=== PATIENT | male | born 1980 | race Caucasian/White ===

== ENCOUNTER 2017-03-28 10:39 | Inpatient (IN) | payer SELFPAY ==
[2017-03-28] MEDS ORDERED: Acetaminophen 325 MG Tab PO PRN (10:47)
[2017-03-28] MEDS ORDERED: Ondansetron 4 MG/2 ML SDV IV PRN (10:47)
[2017-03-28] MEDS ORDERED: Magnesium Hydroxide 400 MG/5 ML Susp 30 ML Cup PO PRN (10:47)
[2017-03-28] MEDS ORDERED: Temazepam 15 MG Cap PO PRN (10:47)
[2017-03-28] MEDS: Lactated Ringers 1,000 ML IV SCH ×2 (11:22→19:20)
[2017-03-28] MEDS: Albuterol/Ipratropium 3.0-0.5 MG/3 ML Neb Soln NEB SCH ×3 (11:23→19:20)
[2017-03-28] MEDS: methylPREDNISolone Sodium Succinate 125 MG/2 ML SDV IVPUSH SCH ×2 (11:23→22:59)
[2017-03-28] MEDS: Levofloxacin/Dextrose 5%-Water 500 MG in Premix Bag 1 BAG IV SCH (11:24)
[2017-03-28 11:39] LABS: CHLORIDE,CL 102 mEq/L (98-106); SODIUM,NA 138 mEq/L (136-145)
[2017-03-28] MEDS: Enoxaparin 30 MG/0.3 ML Syringe SUBCUT SCH (13:59)
[2017-03-29] MEDS: Albuterol/Ipratropium 3.0-0.5 MG/3 ML Neb Soln NEB SCH ×4 (08:24→19:37)
[2017-03-29] MEDS: Lactated Ringers 1,000 ML IV SCH ×3 (08:41→22:58)
--- NOTE | 2017-03-29 09:14 | PN ---
DATE: 03/29/2017 S: This gentleman came in. We attempted to treat as an outpatient for bronchiolitis, pneumonitis. O: NECK: Supple. CHEST: Crepitus, wheezing throughout. CARDIAC: Sounds are good. ASSESSMENT: BRONCHIOLITIS, EARLY PNEUMONITIS. P: Continue present therapy. MAN/ZIYAD /[id number]
[2017-03-29] MEDS: Levofloxacin/Dextrose 5%-Water 500 MG in Premix Bag 1 BAG IV SCH (10:48)
[2017-03-29] MEDS: methylPREDNISolone Sodium Succinate 125 MG/2 ML SDV IVPUSH SCH ×2 (10:50→22:59)
[2017-03-29] MEDS: Enoxaparin 30 MG/0.3 ML Syringe SUBCUT SCH (12:01)
[2017-03-30] MEDS: Levofloxacin/Dextrose 5%-Water 500 MG in Premix Bag 1 BAG IV SCH (07:50)
[2017-03-30] MEDS: methylPREDNISolone Sodium Succinate 125 MG/2 ML SDV IVPUSH SCH ×2 (07:50→20:21)
[2017-03-30] MEDS: Albuterol/Ipratropium 3.0-0.5 MG/3 ML Neb Soln NEB SCH ×4 (07:51→20:21)
--- NOTE | 2017-03-30 08:48 | PCM.PN ---
- General Info Date of Service: 03/30/17 Admission Dx/Problem (Free Text): Pneumonitis Bronchiolitis Subjective Update: Patient reports he is feeling much better. Reports cough has become more productive. No longer hurts to breathe. Still feels slightly short of breath. He has been afebrile. He reports that the nebulizer treatments really are helping. His VS are stable on room air. Functional Status: Reports: Pain Controlled, Tolerating Diet, Ambulating, Urinating. Denies: New Symptoms - Review of Systems General: Denies: Fever, Weakness, Fatigue Pulmonary: Reports: Shortness of Breath, Cough, Sputum. Denies: Pleuritic Chest Pain Cardiovascular: Reports: Dyspnea on Exertion. Denies: Chest Pain, Palpitations , Edema, Lightheadedness Gastrointestinal: Reports: No Symptoms Genitourinary: Reports: No Symptoms Neurological: Reports: No Symptoms - Patient Data Vitals - Most Recent: Last Vital Signs Temp 97.4 F 03/29/17 23:56 Pulse 78 03/30/17 07:38 Resp 16 03/30/17 07:38 BP 127/74 03/30/17 07:38 Pulse Ox 94 L 03/30/17 07:38 Weight - Most Recent: 191 lb 12.8 oz I&O - Last 24 Hours: Intake & Output 03/29/17 03/30/17 03/30/17 22:59 06:59 14:59 Intake Total 1330 Balance 1330 Lab Results Last 24 Hours: Laboratory Results - last 24 hr 03/30/17 Range/Units 07:54 WBC 17.5 H (5.0-10.0) 10^3/uL RBC 4.85 (4.50-6.00) 10^6/uL Hgb 14.8 (14.0-18.0) g/dL Hct 43.3 (40.0-54.0) % MCV 89.3 (82.0-94.0) fL MCH 30.5 (27.0-32.0) pg MCHC 34.2 (33.0-38.0) g/dL RDW Coeff of Matthew 13.6 (11.0-15.0) % Plt Count 263 (150-400) 10^3/uL Neut % (Auto) 83.9 (35-85) % Lymph % (Auto) 13.1 (10-55) % [place] % (Auto) 2.9 (0-16) % Eos % (Auto) 0 (0-5) % Baso % (Auto) 0.1 (0-3) % Neut # (Auto) 14.66 H (1.80-7.00) 10^3/uL Lymph # (Auto) 2.28 (1.00-4.80) 10^3/uL [place] # (Auto) 0.51 (0.00-0.80) 10^3/uL Eos # (Auto) 0.00 (0.00-0.45) 10^3/uL Baso # (Auto) 0.01 10^3/uL Cullen Results Last 24 Hours: Microbiology 03/29/17 08:12 Gram Stain - Final Sputum - Expectorated Sputum Culture - Preliminary Med Orders - Current: Current Medications Acetaminophen (Tylenol) 650 mg PO Q4H PRN PRN Reason: Pain (Mild 1-3)/fever Last Admin: 03/28/17 11:31 Dose: 650 mg Albuterol/Ipratropium (Duoneb 3.0-0.5 Mg/3 Ml) 3 ml NEB QIDRT [facility] Last Admin: 03/30/17 07:51 Dose: 3 ml Enoxaparin Sodium (Lovenox) 30 mg SUBCUT DAILY@1200 [facility] Last Admin: 03/29/17 12:01 Dose: 30 mg Levofloxacin/Dextrose 500 mg/ (Premix) 100 mls @ 100 mls/hr IV Q24H [facility] Last Admin: 03/30/17 07:50 Dose: 100 mls/hr Magnesium Hydroxide (Milk Of Magnesia) 30 ml PO Q12H PRN PRN Reason: Constipation Methylprednisolone Sodium Succinate (Solu-Medrol) 62.5 mg IVPUSH Q12H [facility] Last Admin: 03/30/17 07:50 Dose: 62.5 mg Ondansetron HCl (Zofran) 4 mg IV Q6H PRN PRN Reason: Nausea/Vomiting Temazepam (Restoril) 15 mg PO BEDTIME PRN PRN Reason: Sleep Discontinued Medications Lactated Ringer's (Ringers, Lactated) 1,000 mls @ 100 mls/hr IV ASDIRECTED [facility] Last Admin: 03/29/17 22:58 Dose: 100 mls/hr Levofloxacin/Dextrose 500 mg/ (Premix) 100 mls @ 100 mls/hr IV Q24H [facility] Last Admin: 03/29/17 10:48 Dose: 100 mls/hr Methylprednisolone Sodium Succinate (Solu-Medrol) 62.5 mg IVPUSH Q12H [facility] Last Admin: 03/29/17 22:59 Dose: 62.5 mg - Exam Quality Assessment: DVT Prophylaxis. No: Supplemental Oxygen General: Alert, Oriented Neck: Supple Lungs: Normal Respiratory Effort, Decreased Breath Sounds. No: Crackles, Wheezing Cardiovascular: Regular Rate, Regular Rhythm Neurological: No New Focal Deficit Psy/Mental Status: Alert, Normal Affect, Normal Mood - Problem List & Annotations (1) Pneumonitis SNOMED Code(s): 452811030 Code(s): J18.9 - PNEUMONIA, UNSPECIFIED ORGANISM Status: Acute Current Visit: Yes (2) Bronchiolitis SNOMED Code(s): 4942799 Code(s): J21.9 - ACUTE BRONCHIOLITIS, UNSPECIFIED Status: Acute Current Visit: Yes - Problem List Review Problem List Initiated/Reviewed/Updated: Yes - My Orders Last 24 Hours: My Active Orders 03/30/17 07:54 C-REACTIVE PROTEIN [CHEM] Routine - Plan Plan:: Continue current therapy- IV levaquin, duonebs, and steroids WBC increased today- likely steroid induced. Will recheck in am. CRP decreased from 5.4 to 1.5. Probable discharge tomorrow if continues to improve
[2017-03-30] MEDS: Enoxaparin 30 MG/0.3 ML Syringe SUBCUT SCH (11:38)
[2017-03-31] MEDS: Albuterol/Ipratropium 3.0-0.5 MG/3 ML Neb Soln NEB SCH (07:41)
[2017-03-31] MEDS: Levofloxacin/Dextrose 5%-Water 500 MG in Premix Bag 1 BAG IV SCH (07:41)
[2017-03-31] MEDS: methylPREDNISolone Sodium Succinate 125 MG/2 ML SDV IVPUSH SCH (07:42)
[2017-03-31 08:04] VITALS: BP 128/71
--- NOTE | 2017-03-31 09:25 | PN ---
DATE: 03/31/2017 S: This gentleman came in. We attempted to treat as an outpatient for bronchiolitis and pneumonitis. He then came in with severe shortness of breath and now started on RT treatments, IV steroids, intravenous antibiotics. At the time of discharge, lungs were relatively clear. He felt great. LABORATORY DATA: Labs here in the hospital, white count was still elevated at 5 from the steroids. C-reactive protein went from 5.4 to 0.9. Urine looked good. DISPOSITION: The patient is now discharged home. We will see him back in the clinic in [place] on Monday for a recheck. DISCHARGE MEDICATIONS: Home medications. DISCHARGE DIAGNOSES: 1. Bronchiolitis. 2. Pneumonitis. Send him home on Zithromax and prednisone 20 daily. DANII /[id number]
== END 2017-03-31 09:30 | disposition home or self-care (01) | DRG 195 ==
LOC: CC.MS 10:39 → UNDOADMIN 10:39 → MERGE 10:47 → CC.MS 10:47
PROVIDERS: ADMIT General Practice; ATTEND General Practice
DX: J18.0 Bronchopneumonia, unspecified organism (principal); Z82.49 Family history of ischemic heart disease and other diseases of the circulatory system
CPT/HCPCS: 36415; 71046; 80053; 81001; 83735; 84443; 85025; 86140; 87070; 87205; 87804; 94640; A9270-GY; J1650; J1956; J2930; J7120

== ENCOUNTER 2018-01-02 13:29 | Observation (INO) | payer OTHER ==
[2018-01-02 14:00] LABS: CHLORIDE,CL 101 mEq/L (98-106); SODIUM,NA 137 mEq/L (136-145)
[2018-01-02] MEDS ORDERED: Temazepam 15 MG Cap PO PRN (17:07)
[2018-01-02] MEDS ORDERED: fentaNYL 100 MCG/2 ML SDV IVPUSH PRN (17:09)
[2018-01-02] MEDS ORDERED: Acetaminophen 500 MG Tab PO PRN (17:17)
[2018-01-02] MEDS: Pantoprazole 40 MG Vial IVPUSH SCH (18:02)
[2018-01-02] MEDS: Lactated Ringers 1,000 ML IV SCH (18:12)
[2018-01-02] MEDS: Sucralfate 1 GM Tab PO SCH (19:30)
[2018-01-03] MEDS: Lactated Ringers 1,000 ML IV SCH ×2 (02:46→15:08)
[2018-01-03] MEDS: Pantoprazole 40 MG Vial IVPUSH SCH (05:57)
[2018-01-03] MEDS: Sucralfate 1 GM Tab PO SCH ×2 (06:08→12:10)
[2018-01-03] MEDS ORDERED: Midazolam 1 MG/ML 2 ML SDV ONE ×2 (09:43→10:37)
[2018-01-03] MEDS ORDERED: Meperidine PF 25 MG/ML Syringe ONE ×2 (09:44→10:35)
[2018-01-03] MEDS ORDERED: Benzocaine 20% Oral Spray 59.2 ML Canister MUCMEM ONE ×2 (10:10→10:35)
[2018-01-03] MEDS ORDERED: Midazolam 1 MG/ML 2 ML SDV IV ONE ×2 (10:35→10:40)
[2018-01-03] MEDS ORDERED: Meperidine PF 50 MG/ML Syringe IV ONE (10:35)
[2018-01-03] MEDS ORDERED: Pantoprazole 40 MG Vial IVPUSH ONE (17:00)
[2018-01-03 17:28] VITALS: BP 110/64
--- NOTE | 2018-01-03 21:20 | PCM.DCSUM1 ---
Discharge Summary - Hospital Course Free Text/Narrative:: Patient presented to clinic to see Tahira for epigastric pain. Increasing in nature. Had tried Prilosec and Zantac without relief. Rated pain at a 6/10. Tender to midepigastric area. Labs done did show elevated WBC of 14.4 with CRP of 4.4. Patient admitted for IV fluids, EGD. Started on Carafate. Modified Norco Scale: No Symptoms at All Modified Norco Scale Score: 0 - Discharge Data Discharge Date: 01/03/18 Discharge Disposition: Home, Self-Care 01 Condition: Good - Patient Summary/Data Operative Procedure(s) Performed: EGD, see procedure note Complications: none Hospital Course: Hospital course uneventful. Patient this am did continue to have mild midepigastric pain. Labs 11.4, CRP up to [address] Madison did perform an EGD today with noted gastritis, duodenitis. Patient given IV Protonix 40 mg today. Advised of findings. Need to continue Protonix 40 mg daily. Decrease stimulants. Admits to very little alcohol use. Does drink energy drinks daily. Smokes but is feeling he will quit as he a child due in February. Tolerated regular meal after scope today. - Patient Instructions Diet: Usual Diet as Tolerated Activity: As Tolerated - Discharge Plan *PRESCRIPTION DRUG MONITORING PROGRAM REVIEWED*: No *COPY OF PRESCRIPTION DRUG MONITORING REPORT IN PATIENT MICHELE: No Prescriptions/Med Rec: Pantoprazole Sodium [Protonix] 40 mg PO DAILY #30 tablet. Home Medications: Home Meds Pantoprazole Sodium [Protonix] 40 mg PO DAILY #30 tablet. 01/03/18 [Rx] Referrals: Tahira Garcia GL[employer] OPERATOR [Primary Care Provider] - (Follow up with Tahira in 2 weeks) - Discharge Summary/Plan Comment DC Time >30 min.: No Discharge Summary/Plan Comment: Discharge home Protonix 40 mg daily Follow up with Tahira in 2 weeks. - General Info Date of Service: 01/03/18 Admission Dx/Problem (Free Text: Gastritis Functional Status: Reports: Pain Controlled, Tolerating Diet, Ambulating - Review of Systems General: Denies: Fever, Weakness, Fatigue HEENT: Reports: No Symptoms Pulmonary: Denies: Shortness of Breath, Cough Cardiovascular: Denies: Chest Pain, Edema, Lightheadedness Gastrointestinal: Reports: Abdominal Pain. Denies: Nausea, Vomiting Genitourinary: Reports: No Symptoms Musculoskeletal: Reports: No Symptoms Skin: Reports: No Symptoms Neurological: Reports: No Symptoms - Patient Data Vitals - Most Recent: Last Vital Signs Temp 96.1 F 01/03/18 16:00 Pulse 74 01/03/18 16:00 Resp 20 01/03/18 16:00 BP 110/64 01/03/18 16:00 Pulse Ox 93 L 01/03/18 11:30 Weight - Most Recent: 177 lb 8 oz I&O - Last 24 hours: Intake & Output 01/03/18 01/03/18 01/03/18 06:59 14:59 22:59 Intake Total 1000 1000 Balance 1000 1000 Lab Results - Last 24 hrs: Laboratory Results - last 24 hr 01/03/18 01/03/18 Range/Units 07:07 07:07 WBC 11.9 H (5.0-10.0) 10^3/uL RBC 5.30 (4.50-6.00) 10^6/uL Hgb 15.8 (14.0-18.0) g/dL Hct 45.8 (40.0-54.0) % MCV 86.4 (82.0-94.0) fL MCH 29.8 (27.0-32.0) pg MCHC 34.5 (33.0-38.0) g/dL RDW Coeff of Matthew 13.6 (11.0-15.0) % Plt Count 227 (150-400) 10^3/uL Neut % (Auto) 71.8 (35-85) % Lymph % (Auto) 18.5 (10-55) % [place] % (Auto) 6.9 (0-16) % Eos % (Auto) 2.5 (0-5) % Baso % (Auto) 0.3 (0-3) % Neut # (Auto) 8.51 H (1.80-7.00) 10^3/uL Lymph # (Auto) 2.20 (1.00-4.80) 10^3/uL [place] # (Auto) 0.82 H (0.00-0.80) 10^3/uL Eos # (Auto) 0.30 (0.00-0.45) 10^3/uL Baso # (Auto) 0.03 10^3/uL C-Reactive Protein 10.0 H (0.2-0.8) mg/dL Med Orders - Current: Current Medications Discontinued Medications Acetaminophen (Tylenol Extra Strength) 1,000 mg PO Q6H PRN PRN Reason: Pain Benzocaine (Hurricaine 20% Bergoo) 5 ml MUCMEM .STK-MED ONE Stop: 01/03/18 10:11 Last Admin: 01/03/18 10:10 Dose: 5 ml Benzocaine (Hurricaine 20% Bergoo) 5 ml MUCMEM .STK-MED ONE Stop: 01/03/18 10:36 Last Admin: 01/03/18 10:35 Dose: 5 ml Fentanyl (Sublimaze) 25 mcg IVPUSH Q6H PRN PRN Reason: Pain Last Admin: 01/02/18 18:19 Dose: 25 mcg Lactated Ringer's (Ringers, Lactated) 1,000 mls @ 125 mls/hr IV ASDIRECTED [facility] Last Admin: 01/03/18 15:08 Dose: 125 mls/hr Meperidine HCl (Demerol) Confirm Administered Dose 25 mg .ROUTE .STK-MED ONE Stop: 01/03/18 09:45 Last Admin: 01/03/18 13:52 Dose: Not Given Meperidine HCl (Demerol) Confirm Administered Dose 25 mg .ROUTE .STK-MED ONE Stop: 01/03/18 10:36 Last Admin: 01/03/18 13:52 Dose: Not Given Meperidine HCl (Demerol) 50 mg IV .STK-MED ONE Stop: 01/03/18 10:36 Last Admin: 01/03/18 10:35 Dose: 50 mg Midazolam HCl (Versed 1 Mg/Ml) Confirm Administered Dose 4 mg .ROUTE .STK-MED ONE Stop: 01/03/18 09:44 Last Admin: 01/03/18 13:52 Dose: Not Given Midazolam HCl (Versed 1 Mg/Ml) Confirm Administered Dose 2 mg .ROUTE .STK-MED ONE Stop: 01/03/18 10:38 Last Admin: 01/03/18 13:52 Dose: Not Given Midazolam HCl (Versed 1 Mg/Ml) 4 mg IV .STK-MED ONE Stop: 01/03/18 10:36 Last Admin: 01/03/18 10:35 Dose: 4 mg Midazolam HCl (Versed 1 Mg/Ml) 2 mg IV .STK-MED ONE Stop: 01/03/18 10:41 Last Admin: 01/03/18 10:40 Dose: 2 mg Pantoprazole Sodium (Protonix Iv) 40 mg IVPUSH Q12H [facility] Last Admin: 01/03/18 05:57 Dose: 40 mg Pantoprazole Sodium (Protonix Iv) 40 mg IVPUSH ONETIME ONE Stop: 01/03/18 17:01 Last Admin: 01/03/18 17:08 Dose: 40 mg Sucralfate (Carafate) 1 gm PO QIDACANDBED [facility] Last Admin: 01/03/18 12:10 Dose: 1 gm Temazepam (Restoril) 15 mg PO BEDTIME PRN PRN Reason: Sleep - Exam General: Reports: Alert, Oriented HEENT: Reports: Mucous Membr. Moist/[place] Neck: Reports: Supple Lungs: Reports: Clear to Auscultation, Normal Respiratory Effort Cardiovascular: Reports: Regular Rate, Regular Rhythm GI/Abdominal Exam: Normal Bowel Sounds, Soft, Tender (midepigastric area) Extremities: Normal Inspection, No Pedal Edema Skin: Reports: Warm, Dry Neurological: Reports: No New Focal Deficit
--- NOTE | 2018-01-04 10:57 | OR ---
DATE OF OPERATION: 01/03/2018 PREOPERATIVE DIAGNOSIS: EPIGASTRIC PAIN. POSTOPERATIVE DIAGNOSIS: EPIGASTRIC PAIN. SURGEON: Neal Madison MD PROCEDURE: EGD. ANESTHESIA: Conscious sedation. COMPLICATIONS: None. SPECIMEN: None. FINDINGS: 1. Full-length EGD. 2. Mild duodenitis. 3. Mild antral gastritis. 4. Hiatal hernia, [id number] with spontaneous GERD, but no obvious esophagitis. RECOMMENDATIONS: The patient will be placed on proton pump therapy. Unfortunately, he started having a lot of gagging in the middle of procedure and we were not able to do any routine biopsies including SANDI testing on this gentleman. INDICATIONS: The patient was admitted for severe epigastric pain. He had a negative CT scan of his abdomen and labs were all fine including amylase. He was admitted for observation and I was asked to consult for an EGD. DESCRIPTION OF PROCEDURE: The patient was prepped and draped, placed in left lateral decubitus position. A lubricated Olympus gastroscope was inserted over a bit, advanced to cricopharyngeus area and intubated the esophagus. Esophageal line appeared benign in its entire course. The Z-line was crisp and sharp around 37.5 cm. There was a [id number] sized hiatal hernia present with some spontaneous reflux, but no distal esophagitis or stricturing ulceration or Martinez's changes. The scope was advanced into the stomach through the pylorus into the second portion of the duodenum. The second portion of duodenum looked fine. Duodenal bulb had some mild inflammation but no ulceration. Scope was brought back into the stomach and retroflexed. The upper fundus and cardia were unremarkable. Upon straightening, the patient started having a significant amount of gagging and retching, was pulling at the scope. It was very hard to safely keep the scope down. There was some antral gastritis, but no obvious ulcerations. We were attempting to get some routine biopsies of the duodenal bulb, antrum and SANDI testing, but the patient just became too agitated for this and we elected to stop. Air was suctioned, scope was safely removed without complication. The patient was taken back to his hospital bed. CASSIUS/ZIYAD /[id number]
== END 2018-01-03 17:25 | disposition home or self-care (01) ==
LOC: CC.MS 13:29 → CC.FCMC 13:29 → CC.MS 16:06
PROVIDERS: ADMIT Nurse Practitioner Family; ATTEND Family Medicine
DX: K29.70 Gastritis, unspecified, without bleeding (principal); K29.80 Duodenitis without bleeding; K44.9 Diaphragmatic hernia without obstruction or gangrene; K21.9 Gastro-esophageal reflux disease without esophagitis; F17.210 Nicotine dependence, cigarettes, uncomplicated; E78.5 Hyperlipidemia, unspecified
CPT/HCPCS: 36415; 43235; 80053; 80061; 82150; 82550; 83690; 84484; 85025; 86140; 96361; 96374; 96375; 96376; A9270; C9113; G0378; J2175; J2250; J3010; J7120

== ENCOUNTER 2019-01-27 03:53 | Emergency (ER) | payer BC ==
[2019-01-27] MEDS ORDERED: Cyclobenzaprine 10 MG Tab PO ONE (03:54)
[2019-01-27] MEDS ORDERED: Ketorolac 10 MG Tab PO ONE (03:54)
[2019-01-27] MEDS ORDERED: Ketorolac 60 MG/2 ML SDV IM ONE (03:55)
[2019-01-27 03:56] VITALS: BP 127/71; PULSE 100
--- NOTE | 2019-01-27 03:59 | EDM.PDOC ---
ED HPI GENERAL MEDICAL PROBLEM - General Chief Complaint: General Stated Complaint: fall Time Seen by Provider: 01/27/19 03:53 Source of Information: Reports: Patient, Family History Limitations: Reports: No Limitations - History of Present Illness INITIAL COMMENTS - FREE TEXT/NARRATIVE: Patient to the emergency department where he advised that he had just gotten home and slipped and fell in his driveway landing on his buttocks and has lower back pain. The patient does have a history of chronic back problems. The patient denies any unusual numbness or tingling into his lower extremities the patient denies any mid or upper back pain denies any neck pain he denies hitting his head, there is no loss of consciousness. The patient denies any abdominal pain no nausea no vomiting denies any other symptoms Onset: Today Duration: Hour(s): Location: Reports: Back (Lumbar spine area) Quality: Reports: Ache Severity: Moderate Improves with: Reports: None Worsens with: Reports: Movement Context: Reports: Trauma Associated Symptoms: Reports: No Other Symptoms. Denies: Chest Pain, Nausea/ Vomiting, Shortness of Breath Treatments SURGICAL NURSE: Reports: Other (see below) (None) Lower Back Pain Score (Numeric/FACES): 10 - Related Data Allergies Allergy/AdvReac Type Severity Reaction Status Date / Time venom-honey bee Allergy Severe Anaphylactic Verified 01/27/19 04:08 [bee venom (honey bee)] Shock Home Meds: Home Meds Pantoprazole Sodium [Protonix] 40 mg PO DAILY #30 tablet. 01/03/18 [Rx] Methocarbamol [Robaxin] 500 mg PO TID 10 Days #30 tab 01/27/19 [Rx] Pravastatin Sodium 10 mg PO DAILY 01/27/19 [History] SUMAtriptan Succinate [Imitrex] 100 mg PO DAILY PRN 01/27/19 [History] Ubidecarenone [Co Q-10] 200 mg PO DAILY 01/27/19 [History] Past Medical History - Past Health History Medical/Surgical History: Denies Medical/Surgical History - Past Surgical History Musculoskeletal Surgical History: Reports: Shoulder Surgery Social & Family History - Living Situation & Occupation Living situation: Reports: Occupation: Employed ED ROS GENERAL - Review of Systems Review Of Systems: See Below Constitutional: Reports: No Symptoms HEENT: Reports: No Symptoms Respiratory: Reports: No Symptoms. Denies: Shortness of Breath Cardiovascular: Reports: No Symptoms. Denies: Chest Pain Endocrine: Reports: No Symptoms GI/Abdominal: Reports: No Symptoms. Denies: Abdominal Pain, Nausea, Vomiting : Reports: No Symptoms Musculoskeletal: Reports: Back Pain (Lumbar spine pain). Denies: Neck Pain, Hand Pain, Leg Pain Skin: Reports: No Symptoms. Denies: Pruritis, Rash, Erythema Neurological: Reports: No Symptoms. Denies: Dizziness, Headache, Numbness, Tingling, Trouble Speaking, Difficulty Walking, Weakness, Change in Speech, Gait Disturbance Psychiatric: Reports: No Symptoms ED EXAM, GENERAL - Physical Exam Exam: See Below Exam Limited By: No Limitations General Appearance: Alert, WD/WN, Mild Distress, Thin, Other (Patient does have a smell of alcohol about his person) Ears: Normal External Exam Nose: Normal Inspection Throat/Mouth: Normal Inspection, Normal Voice, No Airway Compromise Head: Atraumatic, Normocephalic Neck: Normal Inspection, Supple, Non-Tender, Full Range of Motion Respiratory/Chest: No Respiratory Distress, Lungs Clear, Normal Breath Sounds, Chest Non-Tender Cardiovascular: Normal Peripheral Pulses, Regular Rate, Rhythm, No Murmur Peripheral Pulses: 2+: Radial (R), Posterior Tibial (L), Posterior Tibial (R) GI/Abdominal: Soft, Non-Tender Back Exam: Normal Inspection, Full Range of Motion, Other (Patient complains of pain across the lumbar spine not specifically over the spinous processes) Extremities: Normal Inspection, Normal Range of Motion, Non-Tender (Denies any hip or pelvis pain), Normal Capillary Refill Neurological: Alert, Oriented, Normal Cognition, Normal Gait, No Motor/Sensory Deficits Psychiatric: Normal Affect, Normal Mood Skin Exam: Warm, Dry, Intact, Normal Color Course - Vital Signs Text/Narrative:: The patient was evaluated in emergency department, x-ray of the lumbar spine was obtained and does not show any acute fracture or subluxation there is some mild to this which is unchanged from an MRI previously. L5 vertebral body also has a slight wedge-shaped to it which also appears to be unchanged from the previous MRI. See both of the previous MRI as well as the films from today for comparison in more detail. The radiology reading still pending however. The patient was given Toradol 60 mg IM in the emergency department. The patient will be discharged with Robaxin 500 mg 3 times daily for 10 days. The patient will be given Toradol 10 mg 3 times daily as needed as a take-home 1 pack. The patient is to follow-up with his spine doctor this week he is to call Monday for appointment time he is to return to the emergency department sooner if worse or any problems Last Recorded V/S: Last Vital Signs Temp 37.1 C 01/27/19 03:53 Pulse 100 01/27/19 03:53 Resp 16 01/27/19 03:53 BP 127/71 01/27/19 03:53 Pulse Ox 98 01/27/19 03:53 - Orders/Labs/Meds Orders: Active Orders 24 hr Category Date Time Status Lumbar Spine 2 or 3V [CR] Stat Exams 01/27/19 03:54 Ordered Meds: Medications Discontinued Medications Generic Name Dose Route Start Last Admin Trade Name Freq PRN Reason Stop Dose Admin Cyclobenzaprine HCl 1 packet 01/27/19 04:18 Take Home: Cyclobenzaprine 10 Mg, 4 Tab Pack PO 01/27/19 04:19 ONETIME ONE Ketorolac Tromethamine 60 mg 01/27/19 03:55 01/27/19 03:59 Toradol IM 01/27/19 03:56 60 mg ONETIME ONE Administration Ketorolac Tromethamine 1 packet 01/27/19 04:18 Take Home: Ketorolac 10 Mg, 4 Tab Pack PO 01/27/19 04:19 ONETIME ONE Departure - Departure Time of Disposition: 04:16 Disposition: Home, Self-Care 01 Condition: Good Clinical Impression: Fall, Lumbar spine strain - Discharge Information *PRESCRIPTION DRUG MONITORING PROGRAM REVIEWED*: Not Applicable *COPY OF PRESCRIPTION DRUG MONITORING REPORT IN PATIENT MICHELE: Not Applicable Prescriptions: Methocarbamol [Robaxin] 500 mg PO TID 10 Days #30 tab Instructions: Muscle Strain, [id number], Lumbosacral Strain Forms: ED Department Discharge Additional Instructions: Rest Increase fluid Robaxin 500 mg 3 times a day for 10 days Toradol 10 mg every 8 hours as needed for pain Follow-up family doctor this week for further evaluation and treatment of your lumbar spine pain Return to emergency department sooner if worse or any problems - Problem List & Annotations (1) Fall SNOMED Code(s): 2357326, 153577406 Code(s): W19.XXXA - UNSPECIFIED FALL, INITIAL ENCOUNTER Status: Acute Priority: Medium Qualifiers: Encounter type: initial encounter Qualified Code(s): W19.XXXA - Unspecified fall, initial encounter (2) Lumbar spine strain SNOMED Code(s): 053747746 Code(s): S39.012A - STRAIN OF MUSCLE, FASCIA AND TENDON OF LOWER BACK, INIT Status: Acute Priority: Medium Qualifiers: Encounter type: initial encounter Qualified Code(s): S39.012A - Strain of muscle, fascia and tendon of lower back, initial encounter - Problem List Review Problem List Initiated/Reviewed/Updated: Yes - My Orders Last 24 Hours: My Active Orders 01/27/19 03:54 Lumbar Spine 2 or 3V [CR] Stat - Assessment/Plan Last 24 Hours: My Active Orders 01/27/19 03:54 Lumbar Spine 2 or 3V [CR] Stat Plan: As above
[2019-01-27] MEDS ORDERED: Take Home: Ketorolac 10 MG Tab, 4 Tab Pack PO ONE (04:18)
[2019-01-27] MEDS ORDERED: Take Home: Cyclobenzaprine 10 MG Tab, 4 Tab Pack PO ONE (04:18)
== END 2019-01-27 04:28 | disposition home or self-care (01) ==
LOC: CC.ED 03:53
DX: S39.012A Strain of muscle, fascia and tendon of lower back, initial encounter (principal); Z91.030 Bee allergy status; W01.0XXA Fall on same level from slipping, tripping and stumbling without subsequent striking against object, initial encounter; Y92.008 Other place in unspecified non-institutional (private) residence as the place of occurrence of the external cause
CPT/HCPCS: 72100; 96372; 99283-25; A9270-GY; J1885

== ENCOUNTER 2020-08-17 18:29 | Emergency (ER) | payer BC ==
[2020-08-17 18:41] VITALS: BP 136/91; PULSE 89
[2020-08-17 19:15] LABS: CHLORIDE,CL 99 mEq/L (98-106); SODIUM,NA 137 mEq/L (136-145)
--- NOTE | 2020-08-17 20:00 | EDM.PDOC ---
ED HPI GENERAL MEDICAL PROBLEM - General Chief Complaint: General Stated Complaint: doesnt feel right Time Seen by Provider: 08/17/20 18:45 Source of Information: Reports: Patient, Family History Limitations: Reports: No Limitations - History of Present Illness INITIAL COMMENTS - FREE TEXT/NARRATIVE: Junito is a 40 yo male who presents to the ED with c/o fatigue and "just not fe eling well." He reports he has slept more the last 2 days than he ever does. Does not have any real symptoms other than severe fatigue. Does admit he feels "fuzzy in the head." Denies any real dizziness or lightheadedness. He denies any headache, fever, chills, N/V,D, cough, URI symptoms, chest pain, abdominal pain. 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 Does admit that he typically drinks 3 energy drinks a day. Smokes 3 ppd. Reports he has been eating and drinking without difficulty. No recent alcohol or drug use. Onset Date: 08/16/20 Duration: Constant Location: Reports: Generalized Associated Symptoms: Reports: No Other Symptoms. Denies: Confusion, Chest Pain, Cough, cough w sputum, Diaphoresis, Fever/Chills, Headaches, Loss of Appetite, Malaise, Nausea/Vomiting, Rash, Seizure, Shortness of Breath, Syncope, Weakness - Related Data Allergies Allergy/AdvReac Type Severity Reaction Status Date / Time venom-honey bee Allergy Severe Anaphylactic Verified 08/17/20 18:31 [bee venom (honey bee)] Shock Home Meds: Home Meds Pantoprazole Sodium [Protonix] 40 mg PO DAILY #30 tablet. 01/03/18 [Rx] SUMAtriptan succinate [Imitrex] 100 mg PO DAILY PRN 01/27/19 [History] Ubidecarenone [Co Q-10] 200 mg PO DAILY 01/27/19 [History] methocarbamoL [Robaxin] 500 mg PO TID 10 Days #30 tab 01/27/19 [Rx] Past Medical History - Past Health History Medical/Surgical History: Denies Medical/Surgical History Cardiovascular History: Reports: High Cholesterol Respiratory History: Reports: None - Past Surgical History Musculoskeletal Surgical History: Reports: Shoulder Surgery Social & Family History - Family History Family Medical History: No Pertinent Family History - Tobacco Use Tobacco Use Status *Q: Current Every Day Tobacco User Years of Tobacco use: 25 Packs/Tins Daily: 1 - Caffeine Use Caffeine Use: Reports: Energy Drinks - Recreational Drug Use Recreational Drug Use: No Drug Use in Last 12 Months: No - Living Situation & Occupation Living situation: Reports: Occupation: Employed ED ROS GENERAL - Review of Systems Review Of Systems: Comprehensive ROS is negative, except as noted in HPI. ED EXAM, GENERAL - Physical Exam Exam: See Below Exam Limited By: No Limitations General Appearance: Alert, WD/WN, No Apparent Distress Eye Exam: Bilateral Eye: EOMI, Normal Fundi, Normal Inspection, PERRL Ears: Normal External Exam, Normal Canal, Hearing Grossly Normal, Normal TMs Nose: Normal Inspection, Normal Mucosa, No Blood Throat/Mouth: Normal Inspection, Normal Lips, Normal Teeth, Normal Gums, Normal Oropharynx, Normal Voice, No Airway Compromise Head: Atraumatic, Normocephalic Neck: Normal Inspection, Supple, Non-Tender, Full Range of Motion Respiratory/Chest: No Respiratory Distress, Lungs Clear, Normal Breath Sounds, No Accessory Muscle Use, Chest Non-Tender Cardiovascular: Normal Peripheral Pulses, Regular Rate, Rhythm, No Edema, No Gallop, No JVD, No Murmur, No Rub GI/Abdominal: Normal Bowel Sounds, Soft, Non-Tender, No Organomegaly, No Distention, No Abnormal Bruit, No Mass Back Exam: Normal Inspection, Full Range of Motion, NT Extremities: Normal Inspection, Normal Range of Motion, Non-Tender, Normal Capillary Refill, No Pedal Edema Neurological: Alert, Oriented, CN II-XII Intact, Normal Cognition, Normal Gait, Normal Reflexes, No Motor/Sensory Deficits Psychiatric: Normal Affect, Normal Mood Skin Exam: Warm, Dry, Intact, Normal Color, No Rash Lymphatic: No Adenopathy Course - Vital Signs Last Recorded V/S: Last Vital Signs Temp 99.3 F 08/17/20 18:36 Pulse 89 08/17/20 18:36 Resp 17 08/17/20 18:36 BP 136/91 H 08/17/20 18:36 Pulse Ox - Orders/Labs/Meds Labs: Laboratory Tests 08/17/20 08/17/20 08/17/20 Range/Units 18:54 18:54 18:54 WBC 15.5 H (4.0-11.0) 10^3/uL RBC 5.48 (4.50-6.00) x10^6/uL Hgb 16.3 (14.0-18.0) g/dL Hct 47.2 (42.0-52.0) % MCV 86.1 (83.0-97.0) fL MCH 29.7 (27.0-32.0) pg MCHC 34.5 (32.0-36.0) g/dL RDW Coeff of Matthew 13.2 (11.0-15.0) % Plt Count 285 (150-400) 10^3/uL Immature Gran % (Auto) 0.1 (0.0-4.9) % Neut % (Auto) 66.2 (41-71) % Lymph % (Auto) 29.5 (24-44) % [place] % (Auto) 2.6 (0-10) % Eos % (Auto) 1.2 (0-6) % Baso % (Auto) 0.4 (0-1) % Neut # (Auto) 10.23 H (1.80-8.00) x10^3/uL Lymph # (Auto) 4.57 (0.60-5.00) 10^3/uL [place] # (Auto) 0.40 (0.00-1.50) 10^3/uL Eos # (Auto) 0.19 (0.00-1.50) 10^3/uL Baso # (Auto) 0.06 (0.00-0.50) 10^3/uL Immature Gran # (Auto) 0.02 (0.00-0.49) 10^3/uL Sodium 137 (136-145) mEq/L Potassium 3.7 (3.5-5.0) mEq/L Chloride 99 (98-106) mEq/L Carbon Dioxide 28 (21-32) mmol/L BUN 15 (7-18) mg/dL Creatinine 1.1 (0.7-1.3) mg/dL Est Cr Clr Drug Dosing 87.23 mL/min Estimated GFR (MDRD) > 60 (>=60) mL/min Glucose 107 H (75-99) mg/dL Calcium 9.1 (8.4-10.1) mg/dL Magnesium 2.0 (1.8-2.4) mg/dL Total Bilirubin 0.7 (0.0-1.0) mg/dL AST 20 (15-37) U/L ALT 39 (12-78) U/L Alkaline Phosphatase 105 (46-116) U/L C-Reactive Protein 1.3 H (0.2-0.8) mg/dL Total Protein 7.5 (6.4-8.2) g/dL Albumin 4.1 (3.4-5.0) g/dL Urine Color Yellow (YELLOW) Urine Appearance Clear (CLEAR) Urine pH 5.5 (4.5-8.0) Ur Specific [place] >= 1.030 H (1.003-1.020) Urine Protein Negative (NEGATIVE) mg/dL Urine Glucose (UA) Negative (NEGATIVE) mg/dL Urine Ketones Negative (NEGATIVE) mg/dL Urine Occult Blood Trace-intact H (NEGATIVE) Urine Nitrite Negative (NEGATIVE) Urine Bilirubin Negative (NEGATIVE) Urine Urobilinogen 1.0 (0.2-1.0) EU/dL Ur Leukocyte Esterase Negative (NEGATIVE) Urine RBC 0-5 (0-5) /HPF Urine WBC 0-5 (0-5) /HPF Urine Mucus Occasional H (NOT SEEN) /HPF SARS CoV-2 RNA Rapid KATHRYN (NEGATIVE) 08/17/20 Range/Units 19:26 WBC (4.0-11.0) 10^3/uL RBC (4.50-6.00) x10^6/uL Hgb (14.0-18.0) g/dL Hct (42.0-52.0) % MCV (83.0-97.0) fL MCH (27.0-32.0) pg MCHC (32.0-36.0) g/dL RDW Coeff of Matthew (11.0-15.0) % Plt Count (150-400) 10^3/uL Immature Gran % (Auto) (0.0-4.9) % Neut % (Auto) (41-71) % Lymph % (Auto) (24-44) % [place] % (Auto) (0-10) % Eos % (Auto) (0-6) % Baso % (Auto) (0-1) % Neut # (Auto) (1.80-8.00) x10^3/uL Lymph # (Auto) (0.60-5.00) 10^3/uL [place] # (Auto) (0.00-1.50) 10^3/uL Eos # (Auto) (0.00-1.50) 10^3/uL Baso # (Auto) (0.00-0.50) 10^3/uL Immature Gran # (Auto) (0.00-0.49) 10^3/uL Sodium (136-145) mEq/L Potassium (3.5-5.0) mEq/L Chloride (98-106) mEq/L Carbon Dioxide (21-32) mmol/L BUN (7-18) mg/dL Creatinine (0.7-1.3) mg/dL Est Cr Clr Drug Dosing mL/min Estimated GFR (MDRD) (>=60) mL/min Glucose (75-99) mg/dL Calcium (8.4-10.1) mg/dL Magnesium (1.8-2.4) mg/dL Total Bilirubin (0.0-1.0) mg/dL AST (15-37) U/L ALT (12-78) U/L Alkaline Phosphatase (46-116) U/L C-Reactive Protein (0.2-0.8) mg/dL Total Protein (6.4-8.2) g/dL Albumin (3.4-5.0) g/dL Urine Color (YELLOW) Urine Appearance (CLEAR) Urine pH (4.5-8.0) Ur Specific [place] (1.003-1.020) Urine Protein (NEGATIVE) mg/dL Urine Glucose (UA) (NEGATIVE) mg/dL Urine Ketones (NEGATIVE) mg/dL Urine Occult Blood (NEGATIVE) Urine Nitrite (NEGATIVE) Urine Bilirubin (NEGATIVE) Urine Urobilinogen (0.2-1.0) EU/dL Ur Leukocyte Esterase (NEGATIVE) Urine RBC (0-5) /HPF Urine WBC (0-5) /HPF Urine Mucus (NOT SEEN) /HPF SARS CoV-2 RNA Rapid KATHRYN Negative (NEGATIVE) Departure - Departure Time of Disposition: 19:56 Disposition: Home, Self-Care 01 Condition: Good Clinical Impression: Fatigue Qualifiers: Fatigue type: due to excessive exertion Encounter type: initial encounter Qualified Code(s): T73.3XXA - Exhaustion due to excessive exertion, initial encounter Heat exhaustion Qualifiers: Encounter type: initial encounter Qualified Code(s): T67.5XXA - Heat exhaustion, unspecified, initial encounter - Discharge Information *PRESCRIPTION DRUG MONITORING PROGRAM REVIEWED*: Not Applicable *COPY OF PRESCRIPTION DRUG MONITORING REPORT IN PATIENT MICHELE: Not Applicable Instructions: Heat Exhaustion, Fatigue, Preventing Heat Exhaustion, Adult Referrals: Tahira Garcia, SOLUTION CONSULTANT [Primary Care Provider] - Forms: ED Department Discharge Additional Instructions: - Rest and push fluids - Recommend at least 64 oz water daily. More when you are working out in the heat exerting yourself. - When exerting yourself in the heat try to add in Gatorade, Powerade or Propel, something with some electrolytes in it - Tylenol or ibuprofen as needed - Follow up if symptoms worsen or do not seem to be improving - Return to ED for emergent issues Sepsis Event Note (ED) - Evaluation Sepsis Screening Result: No Definite Risk - Problem List & Annotations (1) Fatigue SNOMED Code(s): 93439977 Code(s): R53.83 - OTHER FATIGUE Status: Acute Qualifiers: Fatigue type: due to excessive exertion Encounter type: initial encounter Qualified Code(s): T73.3XXA - Exhaustion due to excessive exertion, initial encounter (2) Heat exhaustion SNOMED Code(s): 34580812 Code(s): T67.5XXA - HEAT EXHAUSTION, UNSPECIFIED, INITIAL ENCOUNTER Status: Acute Qualifiers: Encounter type: initial encounter Qualified Code(s): T67.5XXA - Heat exhaustion, unspecified, initial encounter - Problem List Review Problem List Initiated/Reviewed/Updated: Yes - Assessment/Plan Assessment:: Fatigue Heat Exhaustion Plan: Patient presents with vague symptoms of fatigue and not feeling well the last few days. Opted to proceed with lab workup. Lab work unremarkable. Does have some leukocytosis but this does appear to be chronic in nature. Patient initially refused Covid testing. Did discuss that I would strongly recommend we rule that out given vague symptoms and c/o severe fatigue. Covid was negative. Did admit to working long hours in the heat the last few weeks. Do feel patient likely has some heat exhaustion. Recommend he continue to rest and push fluids. Recommend decrease in energy drinks, as well as smoking cessation. Follow up as scheduled next week. Will recheck lab work at that time. He is advised to return to the ED if symptoms worsen.
== END 2020-08-17 20:01 | disposition home or self-care (01) ==
LOC: CC.ED 18:29
DX: T73.3XXA Exhaustion due to excessive exertion, initial encounter (principal); T67.5XXA Heat exhaustion, unspecified, initial encounter; E78.00 Pure hypercholesterolemia, unspecified; Z72.0 Tobacco use; Z20.822 Contact with and (suspected) exposure to COVID-19; Z91.030 Bee allergy status
CPT/HCPCS: 36415; 80053; 81001; 83735; 85025; 86140; 99283; U0002

== ENCOUNTER 2020-08-20 19:07 | Emergency (ER) | payer BC ==
--- NOTE | 2020-08-20 19:15 | EDM.PDOC ---
ED HPI GENERAL MEDICAL PROBLEM - General Chief Complaint: Abdominal Pain Stated Complaint: abdomenal pain Time Seen by Provider: 08/20/20 19:10 Source of Information: Reports: Patient History Limitations: Reports: No Limitations - History of Present Illness INITIAL COMMENTS - FREE TEXT/NARRATIVE: States about 1100 today he developed some left upper abdominal pain that is worse when he takes a deep breathe, moves or touches it. He had normal bowel movement about 3 pm today. Did not change the pain. No nausea or diarrhea. Has not ate as he did not feel good. He denies any trauma. Denies feeling SOB but that it hurts in his abdomen when he takes a deep breathe. He has not taken anything for this and relates that it has been getting worse all evening. Onset: Today Duration: Getting Worse Location: Reports: Abdomen Quality: Reports: Sharp Worsens with: Reports: Breathing, Movement Associated Symptoms: Reports: Loss of Appetite. Denies: Nausea/Vomiting - Related Data Allergies Allergy/AdvReac Type Severity Reaction Status Date / Time venom-honey bee Allergy Severe Anaphylactic Verified 08/20/20 20:57 [bee venom (honey bee)] Shock Home Meds: Home Meds Pantoprazole Sodium [Protonix] 40 mg PO DAILY #30 tablet.dr 01/03/18 [Rx] SUMAtriptan succinate [Imitrex] 100 mg PO DAILY PRN 01/27/19 [History] Past Medical History - Past Health History Medical/Surgical History: Denies Medical/Surgical History Cardiovascular History: Reports: High Cholesterol Respiratory History: Reports: None - Past Surgical History Musculoskeletal Surgical History: Reports: Shoulder Surgery Social & Family History - Family History Family Medical History: No Pertinent Family History - Caffeine Use Caffeine Use: Reports: Energy Drinks - Living Situation & Occupation Living situation: Reports: Occupation: Employed ED ROS GENERAL - Review of Systems Review Of Systems: See Below Constitutional: Reports: Decreased Appetite. Denies: Fever, Chills HEENT: Reports: No Symptoms Respiratory: Reports: No Symptoms. Denies: Shortness of Breath Cardiovascular: Reports: No Symptoms GI/Abdominal: Reports: Abdominal Pain. Denies: Black Stool, Bloody Stool, Constipation, Diarrhea : Reports: No Symptoms Musculoskeletal: Reports: No Symptoms Skin: Reports: No Symptoms Neurological: Reports: No Symptoms ED EXAM, GI/ABD - Physical Exam Exam: See Below Exam Limited By: No Limitations General Appearance: Alert, WD/WN, Moderate Distress Ears: Normal Canal Nose: Normal Inspection Throat/Mouth: Normal Inspection, Normal Oropharynx, No Airway Compromise Head: Atraumatic, Normocephalic Neck: Normal Inspection, Supple, Non-Tender Respiratory/Chest: No Respiratory Distress, Lungs Clear, Normal Breath Sounds Cardiovascular: Regular Rate, Rhythm, No Edema GI/Abdominal Exam: Normal Bowel Sounds, Soft, Tender (to the left mid to upper abdomen with any palpation.) Back Exam: Normal Inspection, Full Range of Motion Extremities: Normal Inspection, Normal Range of Motion, No Pedal Edema, Normal Capillary Refill Neurological: Alert, Oriented Skin Exam: Warm, Dry, Intact Course - Vital Signs Last Recorded V/S: Last Vital Signs Temp 98.7 F 08/20/20 19:20 Pulse 84 08/20/20 19:20 Resp 20 08/20/20 19:20 BP 137/88 08/20/20 19:20 Pulse Ox 96 08/20/20 19:20 - Orders/Labs/Meds Orders: Active Orders 24 hr Category Date Time Status Abdomen 2V AP Flat Upright [CR] Stat Exams 08/20/20 19:51 Taken Ang Chest [CT] Stat Exams 08/20/20 19:50 Ordered Labs: Laboratory Tests 08/20/20 08/20/20 08/20/20 Range/Units 19:08 19:09 19:09 WBC 12.2 H (4.0-11.0) 10^3/uL RBC 5.47 (4.50-6.00) x10^6/uL Hgb 16.2 (14.0-18.0) g/dL Hct 47.3 (42.0-52.0) % MCV 86.5 (83.0-97.0) fL MCH 29.6 (27.0-32.0) pg MCHC 34.2 (32.0-36.0) g/dL RDW Coeff of Matthew 13.2 (11.0-15.0) % Plt Count 287 (150-400) 10^3/uL Immature Gran % (Auto) 0.2 (0.0-4.9) % Neut % (Auto) 48.6 (41-71) % Lymph % (Auto) 43.1 (24-44) % [place] % (Auto) 5.1 (0-10) % Eos % (Auto) 2.4 (0-6) % Baso % (Auto) 0.6 (0-1) % Neut # (Auto) 5.91 (1.80-8.00) x10^3/uL Lymph # (Auto) 5.25 H (0.60-5.00) 10^3/uL [place] # (Auto) 0.62 (0.00-1.50) 10^3/uL Eos # (Auto) 0.29 (0.00-1.50) 10^3/uL Baso # (Auto) 0.07 (0.00-0.50) 10^3/uL Immature Gran # (Auto) 0.03 (0.00-0.49) 10^3/uL D-Dimer, Quantitative (0.00-0.50) Sodium 138 (136-145) mEq/L Potassium 3.6 (3.5-5.0) mEq/L Chloride 101 (98-106) mEq/L Carbon Dioxide 25 (21-32) mmol/L BUN 16 (7-18) mg/dL Creatinine 1.2 (0.7-1.3) mg/dL Est Cr Clr Drug Dosing 79.96 mL/min Estimated GFR (MDRD) > 60 (>=60) mL/min Glucose 112 H (75-99) mg/dL Calcium 8.7 (8.4-10.1) mg/dL Total Bilirubin 0.3 (0.0-1.0) mg/dL AST 20 (15-37) U/L ALT 46 (12-78) U/L Alkaline Phosphatase 104 (46-116) U/L C-Reactive Protein 2.1 H (0.2-0.8) mg/dL Total Protein 7.3 (6.4-8.2) g/dL Albumin 3.9 (3.4-5.0) g/dL Amylase 71 (25-115) U/L Urine Color Yellow (YELLOW) Urine Appearance Clear (CLEAR) Urine pH 7.0 (4.5-8.0) Ur Specific [place] >= 1.030 H (1.003-1.020) Urine Protein 30 H (NEGATIVE) mg/dL Urine Glucose (UA) Negative (NEGATIVE) mg/dL Urine Ketones Negative (NEGATIVE) mg/dL Urine Occult Blood Negative (NEGATIVE) Urine Nitrite Negative (NEGATIVE) Urine Bilirubin Negative (NEGATIVE) Urine Urobilinogen 1.0 (0.2-1.0) EU/dL Ur Leukocyte Esterase Negative (NEGATIVE) Urine RBC 0-5 (0-5) /HPF Urine WBC 0-5 (0-5) /HPF Amorphous Sediment Few H (NOT SEEN) /HPF Urine Bacteria Occasional H (NOT SEEN) /HPF Urine Mucus Few H (NOT SEEN) /HPF 08/20/20 Range/Units 19:09 WBC (4.0-11.0) 10^3/uL RBC (4.50-6.00) x10^6/uL Hgb (14.0-18.0) g/dL Hct (42.0-52.0) % MCV (83.0-97.0) fL MCH (27.0-32.0) pg MCHC (32.0-36.0) g/dL RDW Coeff of Matthew (11.0-15.0) % Plt Count (150-400) 10^3/uL Immature Gran % (Auto) (0.0-4.9) % Neut % (Auto) (41-71) % Lymph % (Auto) (24-44) % [place] % (Auto) (0-10) % Eos % (Auto) (0-6) % Baso % (Auto) (0-1) % Neut # (Auto) (1.80-8.00) x10^3/uL Lymph # (Auto) (0.60-5.00) 10^3/uL [place] # (Auto) (0.00-1.50) 10^3/uL Eos # (Auto) (0.00-1.50) 10^3/uL Baso # (Auto) (0.00-0.50) 10^3/uL Immature Gran # (Auto) (0.00-0.49) 10^3/uL D-Dimer, Quantitative 1.46 H (0.00-0.50) Sodium (136-145) mEq/L Potassium (3.5-5.0) mEq/L Chloride (98-106) mEq/L Carbon Dioxide (21-32) mmol/L BUN (7-18) mg/dL Creatinine (0.7-1.3) mg/dL Est Cr Clr Drug Dosing mL/min Estimated GFR (MDRD) (>=60) mL/min Glucose (75-99) mg/dL Calcium (8.4-10.1) mg/dL Total Bilirubin (0.0-1.0) mg/dL AST (15-37) U/L ALT (12-78) U/L Alkaline Phosphatase (46-116) U/L C-Reactive Protein (0.2-0.8) mg/dL Total Protein (6.4-8.2) g/dL Albumin (3.4-5.0) g/dL Amylase (25-115) U/L Urine Color (YELLOW) Urine Appearance (CLEAR) Urine pH (4.5-8.0) Ur Specific [place] (1.003-1.020) Urine Protein (NEGATIVE) mg/dL Urine Glucose (UA) (NEGATIVE) mg/dL Urine Ketones (NEGATIVE) mg/dL Urine Occult Blood (NEGATIVE) Urine Nitrite (NEGATIVE) Urine Bilirubin (NEGATIVE) Urine Urobilinogen (0.2-1.0) EU/dL Ur Leukocyte Esterase (NEGATIVE) Urine RBC (0-5) /HPF Urine WBC (0-5) /HPF Amorphous Sediment (NOT SEEN) /HPF Urine Bacteria (NOT SEEN) /HPF Urine Mucus (NOT SEEN) /HPF Meds: Medications Discontinued Medications Generic Name Dose Route Start Last Admin Trade Name Freq PRN Reason Stop Dose Admin Iopamidol 100 ml 08/20/20 20:21 08/20/20 20:34 Iopamidol 755 Mg/Ml 100 Ml Bottle IVPUSH 08/20/20 20:22 100 ml ONETIME ONE Administration - Re-Assessments/Exams Free Text/Narrative Re-Assessment/Exam: 08/20/20 19:53 discussed labs with the pt. WBC is improved from Monday night. His d-dimer is elevated. Will get CT chest to rule out PE Departure - Departure Time of Disposition: 21:47 Disposition: Home, Self-Care 01 Condition: Fair Clinical Impression: Musculoligamentous strain - Discharge Information *PRESCRIPTION DRUG MONITORING PROGRAM REVIEWED*: Not Applicable *COPY OF PRESCRIPTION DRUG MONITORING REPORT IN PATIENT MICHELE: Not Applicable Forms: ED Department Discharge Additional Instructions: Rest No lifting or pulling Keep apt with Tahira for next week. Return to clinic sooner if pain changes. Push fluids as much as possible. Sepsis Event Note (ED) - Focused Exam Vital Signs: Vital Signs Temp Pulse Resp BP Pulse Ox 08/20/20 19:20 98.7 F 84 20 137/88 96 - Problem List & Annotations (1) Musculoligamentous strain SNOMED Code(s): 668381145 Code(s): T14.8XXA - OTHER INJURY OF UNSPECIFIED BODY REGION, INITIAL ENCOUNTER Status: Acute Current Visit: Yes - Problem List Review Problem List Initiated/Reviewed/Updated: Yes - My Orders Last 24 Hours: My Active Orders 08/20/20 19:50 Ang Chest [CT] Stat 08/20/20 19:51 Abdomen 2V AP Flat Upright [CR] Stat - Assessment/Plan Last 24 Hours: My Active Orders 08/20/20 19:50 Ang Chest [CT] Stat 08/20/20 19:51 Abdomen 2V AP Flat Upright [CR] Stat
[2020-08-20 19:39] VITALS: BP 137/88; PULSE 84
[2020-08-20 19:40] LABS: CHLORIDE,CL 101 mEq/L (98-106); SODIUM,NA 138 mEq/L (136-145)
[2020-08-20] MEDS ORDERED: Iopamidol 755 Mg/ML 100 ML Bottle IVPUSH ONE (20:21)
== END 2020-08-20 21:58 | disposition home or self-care (01) ==
LOC: CC.ED 19:07
DX: S29.012A Strain of muscle and tendon of back wall of thorax, initial encounter (principal); E78.00 Pure hypercholesterolemia, unspecified; Z91.030 Bee allergy status; X58.XXXA Exposure to other specified factors, initial encounter
CPT/HCPCS: 36415; 71275; 74019; 80053; 81001; 82150; 85025; 85379; 86140; 99284-25; Q9967

== ENCOUNTER 2020-09-26 23:50 | Emergency (ER) | payer BC ==
[2020-09-26] MEDS ORDERED: Erythromycin Base 0.5% Ophth Oint 3.5 GM Tube ONE (23:51)
[2020-09-26] MEDS ORDERED: Distilled Water Ophth Irrig Soln 120 ML Bottle ONE (23:51)
[2020-09-26 23:55] VITALS: BP 128/90; PULSE 94
--- NOTE | 2020-09-27 00:21 | EDM.PDOC ---
ED HPI GENERAL MEDICAL PROBLEM - General Chief Complaint: ENT Problem Stated Complaint: "bug in my eye" Time Seen by Provider: 09/27/20 00:05 Source of Information: Reports: Patient History Limitations: Reports: No Limitations - History of Present Illness INITIAL COMMENTS - FREE TEXT/NARRATIVE: This patient is a 40 year old male that presents to the ER. Patient reports getting a bug n his left eye Monday evening. Patient reports having left eye irritation. He report rinsing and rubbing since . Denies vision loss, n, v, d, f, edwards. Onset Date: 10/02/20 Severity: Mild Improves with: Reports: None Worsens with: Reports: None Associated Symptoms: Reports: No Other Symptoms. Denies: Confusion, Cough, Fever/Chills, Headaches, Nausea/Vomiting, Syncope Left Eye Pain Score (Numeric/FACES): 6 - Related Data Allergies Allergy/AdvReac Type Severity Reaction Status Date / Time venom-honey bee Allergy Severe Anaphylactic Verified 09/26/20 23:51 [bee venom (honey bee)] Shock Home Meds: Home Meds Pantoprazole Sodium [Protonix] 40 mg PO DAILY #30 tablet.dr 01/03/18 [Rx] SUMAtriptan succinate [Imitrex] 100 mg PO DAILY PRN 01/27/19 [History] Amitriptyline [Elavil] 10 mg PO BEDTIME 09/26/20 [History] Past Medical History - Past Health History Medical/Surgical History: Denies Medical/Surgical History Cardiovascular History: Reports: High Cholesterol Respiratory History: Reports: None - Past Surgical History Musculoskeletal Surgical History: Reports: Shoulder Surgery Social & Family History - Family History Family Medical History: No Pertinent Family History - Caffeine Use Caffeine Use: Reports: Energy Drinks - Living Situation & Occupation Living situation: Reports: Occupation: Employed ED ROS GENERAL - Review of Systems Review Of Systems: See Below Constitutional: Reports: No Symptoms HEENT: Reports: Eye Pain (left eye irritation). Denies: Eye Discharge Respiratory: Reports: No Symptoms GI/Abdominal: Reports: No Symptoms Skin: Reports: No Symptoms Neurological: Reports: No Symptoms Immunologic: Reports: No Symptoms ED EXAM GENERAL W FULL EYE - Physical Exam Exam: See Below Exam Limited By: No Limitations General Appearance: Alert, WD/WN, No Apparent Distress Eye Exam: Left Eye: Conjunctival Injection, Corneal Abrasion, Bilateral Eye: EOMI, PERRL Visual Acuity (R) 20/: 13 Visual Acuity (L) 20/: 25 With Correction: No Eyelids: Bilateral: Normal Appearance Conjunctiva & Sclera: Left: Injected Cornea Exam: Left: Corneal Abrasion (3 o clock small) Extraocular Movements: Bilateral: Intact Pupils: Normal Accommodation Pupillary Size: Bilateral: 4 mm Pupillary Reaction: Bilateral: Brisk Anterior Chamber: Bilateral: Normal Appearance Posterior Chamber: Bilateral: Normal Funduscopic Ears: Normal External Exam, Normal Canal, Hearing Grossly Normal, Normal TMs Nose: Normal Inspection, Normal Mucosa, No Blood Throat/Mouth: Normal Inspection, Normal Lips, Normal Teeth, Normal Gums, Normal Oropharynx, Normal Voice, No Airway Compromise Head: Atraumatic, Normocephalic Neck: Normal Inspection Respiratory/Chest: No Respiratory Distress, Lungs Clear, Normal Breath Sounds Cardiovascular: Normal Peripheral Pulses, Regular Rate, Rhythm Neurological: Alert, Oriented, Normal Cognition, Normal Gait Psychiatric: Normal Affect, Normal Mood Skin Exam: Warm, Dry, Intact, Normal Color Course - Vital Signs Last Recorded V/S: Last Vital Signs Temp 98.5 F 09/26/20 23:52 Pulse 94 09/26/20 23:52 Resp 18 09/26/20 23:52 BP 128/90 09/26/20 23:52 Pulse Ox 95 09/26/20 23:52 - Orders/Labs/Meds Orders: Active Orders 24 hr Category Date Time Status Visual Acuity [Vision Test] [RC] ASDIRECTED Care 09/27/20 00:21 Ordered Departure - Departure Time of Disposition: 00:18 Disposition: Home, Self-Care 01 Condition: Good Clinical Impression: Corneal abrasion, left Qualifiers: Encounter type: initial encounter Qualified Code(s): S05.02XA - Injury of conjunctiva and corneal abrasion without foreign body, left eye, initial en counter - Discharge Information *PRESCRIPTION DRUG MONITORING PROGRAM REVIEWED*: Not Applicable *COPY OF PRESCRIPTION DRUG MONITORING REPORT IN PATIENT MICHELE: Not Applicable Instructions: Corneal Abrasion, [id number] Forms: ED Department Discharge Additional Instructions: Followup with junk removal specialist Monday Return to the ER for emergencies such as vision loss, fever, vomiting or other concerns Erythromycin 0.5% opth apply ribbon in left eye 6x a day while awake for 7 days #1 tube no refill: give in ER Sepsis Event Note (ED) - Evaluation Sepsis Screening Result: No Definite Risk - Focused Exam Vital Signs: Vital Signs Temp Pulse Resp BP Pulse Ox 09/26/20 23:52 98.5 F 94 18 128/90 95 - My Orders Last 24 Hours: My Active Orders 09/27/20 00:21 Visual Acuity [Vision Test] [RC] ASDIRECTED - Assessment/Plan Last 24 Hours: My Active Orders 09/27/20 00:21 Visual Acuity [Vision Test] [RC] ASDIRECTED Plan: PLEASE SEE RN NOTE FOR PFSH
[2020-09-27] MEDS ORDERED: Erythromycin Base 0.5% Ophth Oint 3.5 GM Tube EYELF ONE (00:29)
== END 2020-09-27 00:35 | disposition home or self-care (01) ==
LOC: CC.ED 23:50
DX: S05.02XA Injury of conjunctiva and corneal abrasion without foreign body, left eye, initial encounter (principal); E78.00 Pure hypercholesterolemia, unspecified; Z91.030 Bee allergy status; Z79.899 Other long term (current) drug therapy; W45.8XXA Other foreign body or object entering through skin, initial encounter
CPT/HCPCS: 99283; A9270-GY